=== PATIENT | male | born 1945 | race Caucasian/White ===

== ENCOUNTER 2017-05-03 13:58 | Outpatient (CLI) | payer MEDICARE ==
--- NOTE | 2017-05-03 15:30 | RAD ---
RIGHT HIP 2 VIEWS: HISTORY: Right hip pain. FINDINGS: There is complete loss of joint space, osteophytosis, and subchondral sclerosis. Chronic-appearing d estructive changes are present on each side of the joint space with flattening of the femoral head. No displaced fractures are apparent. There is calcification of the arterial structures. IMPRESSION: 1. Severe osteoarthritis right hip. 2. Atherosclerosis. POS: [facility]
== END 2017-05-03 13:59 | disposition home or self-care (01) ==
LOC: MADRAD 13:58
PROVIDERS: ATTEND Orthopaedic Surgery
DX: M25.551 Pain in right hip (principal); M16.11 Unilateral primary osteoarthritis, right hip; I70.90 Unspecified atherosclerosis

== ENCOUNTER 2017-07-01 16:41 | Inpatient (IN) | payer MEDICARE ==
[2017-07-01 16:52] VITALS: BMI 25.4
[2017-07-01] MEDS ORDERED: Zolpidem Tartrate 5 MG TAB PO PRN (20:04)
[2017-07-01] MEDS: HYDROcodone/Acetaminophen 10/325 mg Tablet PO PRN (21:12)
[2017-07-02] MEDS: Polyethylene Glycol 3350 17 GM Packet PO SCH (08:28)
[2017-07-02] MEDS: Allopurinol 100 MG TAB PO SCH (08:29)
[2017-07-02] MEDS: Citalopram 20 MG TAB PO SCH (08:29)
[2017-07-02] MEDS: Rivaroxaban 10 MG TAB PO SCH (08:29)
[2017-07-02] MEDS: HYDROcodone/Acetaminophen 10/325 mg Tablet PO PRN ×3 (08:33→21:54)
[2017-07-02] MEDS ORDERED: Famotidine 20 MG TAB PO PRN (09:00)
[2017-07-02] MEDS ORDERED: METHOCARBAMOL 500 MG PO PRN (09:00)
[2017-07-02] MEDS ORDERED: Cyclobenzaprine 10 MG TAB PO PRN (11:35)
[2017-07-02] MEDS ORDERED: Senokot S 8.6-50 MG TAB PO SCH (13:15)
--- NOTE | 2017-07-02 13:54 | HP ---
ATTENDING PHYSICIAN: Dr. Nelly Prajapati ORTHOPEDIC PHYSICIAN: Dr. Miguelito Ivey PRIMARY CARE PHYSICIAN: Dr. Lolis Orr REASON FOR ADMISSION: Skilled rehab status post surgery. HISTORY OF PRESENT ILLNESS AND HOSPITAL COURSE: Mr. Goddard is a 72-year-old male with significant history of chronic right hip pain, he also has a history of transient ischemic attack, chronic atrial fibrillation on Xarelto, hypertension, cardiomyopathy, gout, anxiety and chronic insomnia. The patient has been seeing and followed by Dr. Ivey for his right hip pain and was diagnosed osteoarthritis associated with right superior avascular necrosis for which he underwent right total hip arthroplasty on 06/26/2017 at [facility] in [place]. The patient's postop course was unremarkable per report. He was transferred subsequently to [facility] on the night of 07/01/2017 for skilled rehab prior to going back to the home environment. 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 The patient reports issues on pain which is controlled with hydrocodone associated with constipation. He was started on MiraLax last night and the patient reports that he only had a small hard piece of stool this morning. The patient was previously on both tramadol and hydrocodone, but significant other reported today that store operations specialist discontinued the [place] and received a prescription for tramadol prior to hospital discharge. It was mentioned and discussed with the patient's significant other the drug reaction of tramadol to Citalopram given an increased potential risk for seizures that pain management was discussed and after reviewing the side effects or drug interactions of the 2 medications the patient is wanting to continue the [place] instead of tramadol. He also agrees to start on stool softener on a p.r.n. basis, thus continue MiraLax and to start on high fiber supplements that he brought from home. PAST MEDICAL HISTORY: 1. Hypertension. 2. Chronic atrial fibrillation followed by Dr. Zapata for cardio care. Currently on Xarelto. 3. Transient ischemic attack. 4. Cardiomyopathy 5. Gout. 6. Anxiety. 7. Chronic insomnia. 8. Chronic kidney disease. 9. Chronic gastroesophageal reflux disease. PAST SURGICAL HISTORY: The right total hip arthroplasty on 06/26/[address] Brazeal secondary to right hip avascular necrosis/osteoarthritis. MEDICATIONS: 1. Citalopram 20 mg p.o. daily. 2. Allopurinol 30 mg p.o. daily. 3. Hydrocodone 10/325 mg p.o. q.6 hours p.r.n. 4. Diltiazem/hydrochlorothiazide 480 mg p.o. daily. 5. Methocarbamol 500 mg p.o. daily p.r.n. 6. Ranitidine 150 mg p.o. daily. 7. Quetiapine 50 mg q.p.m. 8. Xarelto 20 mg p.o. daily. 9. Polyethylene glycol 17 grams p.o. daily. 10. Ambien 5 mg p.o. at bedtime p.r.n. DIET: Nondrinker, nonsmoker. The patient is currently. Lives in with a significant other.: REVIEW OF SYSTEMS: GENERAL: Denies fever, chills, fatigue. Reports general weakness, no loss of appetite. HEENT: No acute visual changes or hearing changes, no cold symptoms. RESPIRATORY: No cough, sputum production, pain with breathing, wheezing. CARDIOVASCULAR: Intermittent palpitations. No dyspnea on exertion, paroxysmal nocturnal dyspnea or active chest pain. RESPIRATORY: No shortness of breath, pain with breathing, sputum production, bloody sputum. GI: No nausea, vomiting, abdominal pain, rectal bleeding, melena, hematochezia , black or tarry stools. Positive for constipation. GENITOURINARY: No dysuria, hematuria, frequency, urgency or incontinence and gross hematuria. MUSCULOSKELETAL: Reports chronic joint pain and stiffness per HPI. NEURO: No focal numbness, focal weakness. No tremors, tics or seizure activity. PSYCH: Reports anxiety, chronic insomnia. No hallucinations, no depressive symptoms. No suicidal thoughts or ideations or plans. SKIN: No significant rashes or lesions aside from the postoperative site. LABORATORY AND X-RAY FINDINGS: Laboratory and x-ray findings from the hospital ; radiographs showed femoral head collapse with severe degenerative changes likely avascular necrosis with severe osteoarthritis. PHYSICAL EXAMINATION: VITAL SIGNS: Blood pressure 118/82, temperature 98.2, pulse 71-104 irregular, respiration rate 18, O2 sats 95% on room air, weight 158 pounds, height 5 feet 6 inches. GENERAL: The patient is awake, alert, oriented x3, not in distress. No signs of agony. Resting comfortably in bed, significant other at bedside. HEENT: Normocephalic, atraumatic. PERRLA intact, EOM. Anicteric sclera. Oral mucosa is moist. NECK: Supple. No LAD, no JVD, no bruit. CHEST: Normal excursion, clear to auscultation bilaterally. CARDIAC: Rate controlled, irregular. Normal S1 and S2. No murmurs. ABDOMEN: Flat, soft, normoactive bowel sounds, nondistended, nontender, no rebound, no guarding. Negative CVA tenderness bilaterally. EXTREMITIES: Mild swelling of the right lower extremity. No erythema. Negative Homans' signs. Wears compression stockings bilaterally. SKIN: Postoperative site on the right hip is intact, dry and clean looking, no signs of infection, no surrounding erythema, covered with clean, dry dressing. NEUROLOGIC: Nonfocal. DTRs 2+. Gait unsteady. PSYCHIATRIC: Appears calm with appropriate demeanor and affect. LATEST LABS: On 07/01/2017; WBC 5.2, hemoglobin 10.6, hematocrit 31.9, platelets 203. Baseline CBC on 06/27/2017, hemoglobin 10.7, hematocrit 32.4. PT/INR on 06/26/2017; PT of 14.2, INR 1.1, APTT 31.3. Negative UA on 2017. ASSESSMENT AND PLAN: 1. Physical deconditioning. 2. Status post right total hip arthroplasty for right hip avascular necrosis and osteoarthritis. 3. Hypertension. 4. Atrial fibrillation on long-term anticoagulation with Xarelto. 5. Anxiety. 6. Chronic insomnia. 7. Hypertension. 8. Gout. 9. Unsteady gait. 10. General weakness. CODE STATUS: Full code. The patient is admitted to [facility] for skilled rehab. PT, OT evaluation and treat. We will continue current medications as modified per list. We will add stool softener and will continue MiraLax for now. Fleet enema p.r.n. DIET: Low salt, low fat. ACTIVITY: Ad jossie. Further recommendations depending on the hospital course. Estimated length of stay 2-3 weeks. DISPOSITION: Home with significant other as the primary booking officer. The patient is requesting for home health post-discharge. ISABELLE
[2017-07-02] MEDS: Famotidine 20 MG TAB PO PRN (18:49)
[2017-07-02] MEDS: Senokot S 8.6-50 MG TAB PO SCH (20:35)
[2017-07-02] MEDS: Zolpidem Tartrate 5 MG TAB PO PRN (20:43)
[2017-07-03] MEDS: HYDROcodone/Acetaminophen 10/325 mg Tablet PO PRN ×4 (04:33→21:12)
[2017-07-03] MEDS: Senokot S 8.6-50 MG TAB PO SCH ×2 (08:10→21:13)
[2017-07-03] MEDS: Citalopram 20 MG TAB PO SCH (08:11)
[2017-07-03] MEDS: Allopurinol 100 MG TAB PO SCH (08:11)
[2017-07-03] MEDS: Rivaroxaban 10 MG TAB PO SCH (08:11)
[2017-07-03] MEDS: Polyethylene Glycol 3350 17 GM Packet PO SCH (08:12)
[2017-07-03] MEDS: Zolpidem Tartrate 5 MG TAB PO PRN (21:12)
[2017-07-04 05:39] LABS: Hemoglobin 10.1 g/dL (14.0-18.0); Platelet Count 249 thou/uL (130-400)
[2017-07-04] MEDS: HYDROcodone/Acetaminophen 10/325 mg Tablet PO PRN ×3 (07:36→19:42)
[2017-07-04] MEDS: Allopurinol 100 MG TAB PO SCH (08:41)
[2017-07-04] MEDS: Rivaroxaban 10 MG TAB PO SCH (08:42)
[2017-07-04] MEDS: Citalopram 20 MG TAB PO SCH (08:42)
[2017-07-04] MEDS: Senokot S 8.6-50 MG TAB PO SCH ×2 (08:42→20:08)
[2017-07-04] MEDS: Polyethylene Glycol 3350 17 GM Packet PO SCH (08:42)
[2017-07-04] MEDS ORDERED: Melatonin 3 MG TAB PO PRN ×2 (12:38→12:39)
[2017-07-04] MEDS ORDERED: Citalopram 20 MG TAB PO SCH (13:00)
[2017-07-04] MEDS: Famotidine 20 MG TAB PO PRN (14:58)
[2017-07-05] MEDS: HYDROcodone/Acetaminophen 10/325 mg Tablet PO PRN ×2 (06:52→13:19)
[2017-07-05] MEDS ORDERED: Citalopram 20 MG TAB PO SCH ×3 (09:00→21:00)
[2017-07-05] MEDS: Allopurinol 100 MG TAB PO SCH (09:23)
[2017-07-05] MEDS: Senokot S 8.6-50 MG TAB PO SCH ×2 (09:23→20:54)
[2017-07-05] MEDS: Rivaroxaban 10 MG TAB PO SCH (09:23)
[2017-07-05] MEDS: Polyethylene Glycol 3350 17 GM Packet PO SCH (09:24)
[2017-07-05] MEDS ORDERED: Melatonin 3 MG TAB PO PRN ×2 (14:00)
[2017-07-05] MEDS ORDERED: Baclofen 10 MG TAB PO PRN (14:32)
[2017-07-05] MEDS ORDERED: traMADol HCl 50 MG TAB PO PRN (14:34)
[2017-07-05] MEDS ORDERED: HYDROcodone/Acetaminophen 10/325 mg Tablet PO PRN ×2 (14:35)
[2017-07-05] MEDS: traMADol HCl 50 MG TAB PO PRN (21:08)
[2017-07-06 04:28] LABS: POC Occult Blood Neg QC Acceptable (Acceptable); POC Occult Blood Pos QC Acceptable (Acceptable)
[2017-07-06 04:38] LABS: CKMB 1.4 ng/mL (0-6.6); Troponin I 0.027 ng/mL (< 0.028)
[2017-07-06 04:40] LABS: ALT (SGPT) 16 U/L (8-55); AST (SGOT) 20 U/L (5-34); Albumin 2.5 g/dL (3.4-4.8); Alkaline Phosphatase 46 U/L (40-150); Anion Gap 18 mmol/L (10-20); BUN (Urea Nitrogen) 86 mg/dL (8.4-25.7); Bilirubin, Total 0.7 mg/dL (0.2-1.2); Calc. Creatinine Clearance 60 mL/min (70-130); Carbon Dioxide 22 mmol/L (23-31); Chloride 104 mmol/L (98-107); Estimated GFR-MDRD 64; Globulin 1.3 g/dL (2.4-3.5); Glucose 134 mg/dL (83-110); Potassium 3.7 mmol/L (3.5-5.1); Protein, Total 3.8 g/dL (5.8-8.1); Sodium 140 mmol/L (136-145)
[2017-07-06] MEDS: traMADol HCl 50 MG TAB PO PRN ×2 (05:01→09:28)
[2017-07-06] MEDS: Famotidine 20 MG TAB PO PRN (05:01)
[2017-07-06] MEDS ORDERED: Sodium Chloride 0.9% 500 ML BAG ONE (05:14)
[2017-07-06] MEDS ORDERED: Sodium Chloride 0.9% 1,000 ML BAG ONE (05:14)
[2017-07-06] MEDS ORDERED: Sodium Chloride 0.9% 1,000 ML IV PRN (05:14)
[2017-07-06] MEDS ORDERED: Sodium Chloride 0.9% 500 ML IV SCH (05:15)
[2017-07-06 05:39] LABS: Hemoglobin 5.7 g/dL (14.0-18.0); Mean Corpuscular Hemoglobin 34.1 pg (27.0-31.0); Mean Corpuscular Volume 97.1 fL (80.0-94.0); Red Blood Cell (RBC) Count 1.68 mill/uL (4.70-6.10); White Blood Cell (WBC) Count 9.2 thou/uL (4.8-10.8)
[2017-07-06 05:40] LABS: Anisocytosis SLIGHT = 6-15 cells (100X) (0-5/hpf); Elliptocytes MODERATE= 6-15 cells (100X) (0-1/hpf); Hypochromia MARKED = >30 cells (100X) (0-5/hpf); Lymphocytes 4 % (21-51); Mean Corpuscular HGB CONC 35.2 g/dL (32.0-36.0); Mean Platelet Volume 5.3 fL (7.4-10.4); PLT Morphology Comment Appears Adequate; Platelet Count 248 thou/uL (130-400); Poikilocytosis SLIGHT = 6-15 cells (100X) (0-5/hpf); RBC Distribution Width 13.6 % (11.5-14.5)
[2017-07-06 05:41] LABS: MDiff Complete? YES; RBC Morphology Abnormal
[2017-07-06] MEDS ORDERED: Sodium Chloride 0.9% 10 ML ONE (08:27)
[2017-07-06 08:44] VITALS: BP 92/59; TEMP 97.9
[2017-07-06] MEDS: Allopurinol 100 MG TAB PO SCH (10:54)
[2017-07-06] MEDS: Senokot S 8.6-50 MG TAB PO SCH (10:55)
[2017-07-06] MEDS: Polyethylene Glycol 3350 17 GM Packet PO SCH (10:55)
[2017-07-06] MEDS ORDERED: Mag-Al Plus 1200 MG/1200 MG/120 MG/30 ML UDCUP PO PRN (11:08)
== END 2017-07-06 12:30 | disposition short-term general hospital (02) | DRG 560 ==
LOC: MADMS 16:41
PROVIDERS: ADMIT Family Medicine; ATTEND Family Medicine
PROC: 30233N1 Transfusion of Nonautologous Red Blood Cells into Peripheral Vein, Percutaneous Approach (ICD-10-PCS; principal; 2017-07-06)
DX: Z47.1 Aftercare following joint replacement surgery (principal); I42.9 Cardiomyopathy, unspecified; I95.9 Hypotension, unspecified; K92.0 Hematemesis; I48.2 Chronic atrial fibrillation; D64.9 Anemia, unspecified; K92.1 Melena; Z96.641 Presence of right artificial hip joint; Z86.73 Personal history of transient ischemic attack (TIA), and cerebral infarction without residual deficits; Z79.01 Long term (current) use of anticoagulants; I10 Essential (primary) hypertension; M10.9 Gout, unspecified; F41.9 Anxiety disorder, unspecified; F51.04 Psychophysiologic insomnia; K59.03 Drug induced constipation; T40.2X5A Adverse effect of other opioids, initial encounter; K21.9 Gastro-esophageal reflux disease without esophagitis; R26.81 Unsteadiness on feet; R53.1 Weakness; R09.02 Hypoxemia
CPT/HCPCS: 36415; 36416; 36430; 80053; 82270; 82553; 82565; 83880; 84484; 85007; 85014; 85018; 85027; 85049; 86850; 86900; 86901; A4216; G8978-GP-CL; G8979-GP-CI; J7050; P9016

== ENCOUNTER 2017-07-11 18:00 | Inpatient (IN) | payer MEDICARE ==
[2017-07-11] MEDS ORDERED: Prevnar 13-Val Conj/PF 0.5 ML SYRINGE IM ONE (21:00)
[2017-07-11] MEDS: HYDROcodone/Acetaminophen 10/325 mg Tablet PO PRN (21:30)
[2017-07-11] MEDS ORDERED: Acetaminophen 325 MG TAB PO PRN (22:25)
[2017-07-11] MEDS: Acetaminophen 325 MG TAB PO PRN (23:18)
--- NOTE | 2017-07-12 01:09 | HP ---
DATE OF ADMISSION: 07/11/2017 ATTENDING: Nelly Prajapati MD REASON FOR ADMISSION: Readmitted to [facility] for skilled rehabilitation. HISTORY OF PRESENT ILLNESS AND HOSPITAL COURSE: Mr. Cooper is a very pleasant 72-year-old male, who was initially admitted at [facility] on 07/01/2017 after he underwent right total hip arthroplasty on 06/26/[address] [facility] in [place]. The patient had a history of chronic right hip pain and was diagnosed with osteoarthritis associated with the right superior avascular necrosis. Surgery was done by Dr. Ivey. He has has an uncomplicated post operative course. His baseline Hemoglobin at that time postoperatively was10. On 07/06/2017, the patient was noted to have an acute onset of blackish tarry stools. This was associated with severe general weakness, hypotension and tachyarrythmia. His Hemoglobin at that time was down to 5.7, thus he was started on blood transfusion. His vital signs had stabilized and the patient was observed cosely. He was also started on Protonix oral at that time due to patient has started having some epigastric discomfort. While on his second bag of blood transfusion, the patient developed an acute onset of hematemesis thus patient was transferred to [facility] immediately. On further examination in the hospital, the patient was found to have a large gastric ulcer on his first EGD on 07/06/[address] Dangelo. He was treated with Protonix drip and a followup endoscopy was done on 07/07/2017 to stratify risk for intervention. Protonix drip was then changed to Protonix IV q.12 hours p.r.n. During this hospitalization, the patient was also noted to have hemorrhagic shock and acute hypoxic respiratory failure requiring ICU admission. He completed his blood transfusions. He was taken cared of by Dr. Mendenhall and was found to have community-acquired pneumonia with E. coli growth by sputum culture. Patient was started on antibiotic. Patient stabilized and his Hemoglobin and Hematocrit went up to 9.3 and 27 respectively on 07/10/2017. He was also noted to have hypocalcemia at that time, with serum calcium down to 6.9. Lab prior to discharge, showed stable hemoglobin at 9.1 and 27 as of today. His serum calcium normalized up to 8.1. Patient has history of chronic atrial fibrillation and has been on Xarelto as treated by his cash grain farmer, Dr. Zapata. During this acute GI bleeding episode, there was a significant atrial fibrillation noted with RVR. Xarelto was discontinued. Cardio was consulted during this admission and it was deemed that the patient may benefit from further anticoagulation with Eliquis, but not until at least 1-2 weeks. He was also started on Diltiazem CD 360 mg p.o. daily. There was a note from cardio that they are considering Watchman procedure for receiving checker and given his CHADS-VASc score of 4 due to age, hypertension, and history of TIA. He is recommended to follow up in cardio's office in about 4-6 weeks to discuss this further as per Dr. Salmon. Prior to transfer ,patient was was rate controlled with current Calcium channel dequan. He was also started on Digoxin. After patient was stabilized, patient was still noted to be generally weak. He was deemed to benefit from skilled rahab prior to going back to home environment. He was subsequently transferred to [facility] on 07/11/2017 to continue rehabilitation. When seen, patient reports that he still feels generally weak, but he looks a lot better. He reports has been having pain on the right hip and low back and upper back today as he has been in his chair since this morning. He denies abdominal pain, recurrence of nausea or vomiting. No more hematemesis. Reports his stools are brownish now and not blackish anymore. He reports that he is still coughing some. Cough is nonproductive. Denies bloody sputum. States he is eating much better as his appetite came back. No other new issues reported. PAST MEDICAL HISTORY: Hypertension, chronic atrial fibrillation followed by Dr. Zapata for cardio care, previously on Xarelto; transient ischemic attack; cardiomyopathy, gout, anxiety, chronic insomnia, chronic kidney disease, chronic gastroesophageal reflux disease, large gastric ulcer on 07/06/2017. Status post endoscopy 07/06/2017 and 07/07/[address] Dangelo. PAST SURGICAL HISTORY: Right total hip arthroplasty on 06/26/[address] Ivey secondary to right hip avascular necrosis/osteoarthritis. MEDICATIONS: 1. Citalopram 20 mg p.o. daily. 2. Allopurinol 300 mg p.o. daily. 3. Hydrocodone 10/325 p.o. 1 to 2 tablets q.6 hours p.r.n. 4. Diltiazem CD 360 mg p.o. daily. 5. Methocarbamol 500 mg p.o. daily p.r.n. 6. Protonix 40 mg p.o. b.i.d. 7. Quetiapine 50 mg p.o. q.p.m. 8. Digoxin 0.125 mg p.o. daily. 9. Levaquin 750 mg p.o. q.6 a.m. 10. Tramadol 50mg 1-2 q.6 hours p.r.n. SOCIAL HISTORY: Nondrinker. Nonsmoker. Patient is . Currently lives with significant other who serves as a primary oyster worker. REVIEW OF SYSTEMS: General: Denies fever or chills. Reports fatigue, general weakness and loss of appetite. HEENT: No acute visual changes or hearing changes. Respiratory: Reports some cough, none dry. No sputum production. Denies pain with breathing. Denies wheezing, or bloody sputum. Cardiovascular : Reports intermittent palpitations. No active chest pain, no dyspnea on exertion, paroxysmal nocturnal dyspnea. Gastrointestinal: No nausea, vomiting , abdominal pain, or diarrhea. Reports history of rectal bleeding, melena, and hematochezia and constipation. Genitourinary: No dysuria, hematuria, frequency , urgency or incontinence. Musculoskeletal: Reports chronic joint pain and stiffness. Neuro: No focal numbness, focal weakness. No tremors, no seizure activity. Reports facial tics a chronic finding. Psychiatric: Reports chronic anxiety, chronic insomnia. No hallucinations, depressive symptoms, suicidal thoughts or ideations. Skin: No significant rashes or lesions aside from the postoperative site. LABORATORY DATA: Most recent lab on 07/11/2017, hemoglobin 9.1, hematocrit 27, calcium 8.1 on 07/10/2017, and albumin 2.1 on 07/07/2017. PHYSICAL EXAMINATION: VITAL SIGNS: Blood pressure 144/65, temperature 97.7, pulse 73, respirations 22 , O2 sats 95% on room air, weight 163 pounds and 64 ounces, height 5 feet 6 inches. GENERAL: The patient is awake, alert, oriented x3, not in distress, comfortable on exam, significant other at bedside. HEENT: Normocephalic, atraumatic. PERRL. Intact EOM. Nonicteric sclera. No nystagmus. Clear naris. Oral mucosa is moist. No oral lesions. NECK: Supple. No LAD, no JVD, no bruit. CHEST: Normal excursion, clear to auscultation bilaterally. CARDIAC: Rate controlled. Normal S1 and S2. No murmurs. ABDOMEN: Flat, normoactive bowel sounds, nondistended, nontender. No rebound, no guarding. Negative epigastric tenderness. Negative Diego's. Negative CVA tenderness bilaterally. EXTREMITIES: No edema, no cyanosis. SKIN: Some bruising noted on both upper extremities. PSYCH: calm, appropriate, cooperative. ASSESSMENT AND PLAN: 1. Deconditioning/General weakness. 2. Large gastric ulcer, with massive gastrointestinal bleeding. Status post endoscopy on 07/06/2017 and 07/07/[address] Dangelo. 3. Community-acquired pneumonia with Escherichia coli by sputum culture. 4. Chronic atrial fibrillation with rapid ventricular response. Now rate controlled. We will start on Eliquis by 07/18/2017. 5. Severe anemia, from acute blood loss, requiring blood transfusion. Complicated with hemorrhagic shock- resolved. 6. Status post right hemiarthroplasty for avascular necrosis. 7. Hypoalbuminemia. 8. Unsteady gait. 9. Anxiety. 10. Chronic insomnia. 11. Acute hypoxic respiratory failure, resolved. The patient will be admitted to [facility] for skilled rehabilitation. Refer to PT, OT. Referred to dietitian for protein supplement. Continue current medications as modified per list. Complete oral antibiotic as prescribed. Eliquis just 5 mg b.i.d. to start on 07/18/17 per Cardio and GI recommendations. Gastrointestinal prophylaxis with Protonix b.i.d. Deep venous thrombosis prophylaxis with compression stockings. Followup with Dr. Dangelo in 1 month. Possible EGD as outpatient in 8 weeks to document healing as per GI recommendation. Followup with Cardiology in 4-6 weeks. Will monitor labs routinely. Further recommendations depending on the hospital course, routine labs ordered. Estimated length of stay : 2-3 weeks. Code status: Patient reports FULL CODE. MTDD
[2017-07-12 05:06] LABS: #Eosinphils 0.1 thou/uL (0.0-0.7); #Lymphocytes 1.2 thou/uL (1.20-3.40); #Monocytes 0.6 thou/uL (0.11-0.59); #Neutrophils 6.7 thou/uL (1.40-6.50); %Basophils 0.4 % (0.0-1.0); %Eosinophils 0.9 % (0.0-10.0); %Lymphocytes 13.9 % (21.0-51.0); %Monocytes 6.6 % (0.0-10.0); %Neutrophils 78.2 % (42.0-75.0); Hemoglobin 8.3 g/dL (14.0-18.0); Mean Corpuscular HGB CONC 33.6 g/dL (32.0-36.0); Mean Corpuscular Volume 95.2 fl (80.0-94.0); Mean Platelet Volume 6.1 fL (7.4-10.4); Platelet Count 241 thou/uL (130-400); RBC Distribution Width 15.5 % (11.5-14.5); Red Blood Cell (RBC) Count 2.59 mill/uL (4.70-6.10); White Blood Cell (WBC) Count 8.6 thou/uL (4.8-10.8)
[2017-07-12 05:22] LABS: Digoxin 1.85 ng/mL (0.8-2.0)
[2017-07-12] MEDS: Citalopram 20 MG TAB PO SCH (08:22)
[2017-07-12] MEDS: Digoxin 0.125 MG TAB PO SCH (08:22)
[2017-07-12] MEDS: Allopurinol 100 MG TAB PO SCH (08:29)
[2017-07-12] MEDS ORDERED: APIXABAN 5 MG PO SCH (09:00)
[2017-07-12] MEDS ORDERED: METHOCARBAMOL 500 MG PO SCH (09:00)
[2017-07-12] MEDS: Acetaminophen 325 MG TAB PO PRN ×2 (09:56→20:22)
[2017-07-12 11:56] LABS: Iron Less than 8 ug/dL (65-175); Iron Binding Capacity, Total 165 mcg/dL (261-462)
[2017-07-12] MEDS ORDERED: Methocarbamol 500 MG TAB PO SCH (14:00)
[2017-07-12] MEDS: HYDROcodone/Acetaminophen 10/325 mg Tablet PO PRN (21:27)
[2017-07-13] MEDS: HYDROcodone/Acetaminophen 10/325 mg Tablet PO PRN ×2 (07:36→20:06)
[2017-07-13] MEDS: Ferrous Sulfate 325 MG TAB PO SCH ×2 (07:37→17:28)
[2017-07-13 07:50] LABS: Hemoglobin 8.4 g/dL (14.0-18.0)
[2017-07-13] MEDS: Digoxin 0.125 MG TAB PO SCH (09:28)
[2017-07-13] MEDS: Methocarbamol 500 MG TAB PO SCH (09:28)
[2017-07-13] MEDS: Citalopram 20 MG TAB PO SCH (09:28)
[2017-07-13] MEDS: Allopurinol 100 MG TAB PO SCH (09:28)
[2017-07-13] MEDS: Acetaminophen 325 MG TAB PO PRN (13:24)
[2017-07-14] MEDS: HYDROcodone/Acetaminophen 10/325 mg Tablet PO PRN ×2 (00:41→08:43)
[2017-07-14] MEDS: Allopurinol 100 MG TAB PO SCH (08:41)
[2017-07-14] MEDS: Ferrous Sulfate 325 MG TAB PO SCH ×2 (08:41→16:49)
[2017-07-14] MEDS: Digoxin 0.125 MG TAB PO SCH (08:41)
[2017-07-14] MEDS: Citalopram 20 MG TAB PO SCH (08:43)
[2017-07-14] MEDS: Methocarbamol 500 MG TAB PO SCH (08:43)
[2017-07-14] MEDS: Docusate 100 MG CAP PO PRN (14:17)
[2017-07-14] MEDS: Polyethylene Glycol 3350 17 GM Packet PO SCH (14:18)
[2017-07-14] MEDS: Acetaminophen 325 MG TAB PO PRN ×2 (14:19→23:12)
[2017-07-14] MEDS: traMADol HCl 50 MG TAB PO PRN (20:18)
[2017-07-15] MEDS: Acetaminophen 325 MG TAB PO PRN ×2 (05:38→16:11)
[2017-07-15] MEDS: Polyethylene Glycol 3350 17 GM Packet PO SCH (08:11)
[2017-07-15] MEDS: Allopurinol 100 MG TAB PO SCH (08:12)
[2017-07-15] MEDS: HYDROcodone/Acetaminophen 10/325 mg Tablet PO PRN (08:12)
[2017-07-15] MEDS: Methocarbamol 500 MG TAB PO SCH (08:12)
[2017-07-15] MEDS: Citalopram 20 MG TAB PO SCH (08:13)
[2017-07-15] MEDS: Docusate 100 MG CAP PO PRN ×2 (08:13→16:11)
[2017-07-15] MEDS: Digoxin 0.125 MG TAB PO SCH (08:13)
[2017-07-15] MEDS: Ferrous Sulfate 325 MG TAB PO SCH ×2 (08:14→16:56)
[2017-07-15] MEDS: traMADol HCl 50 MG TAB PO PRN (19:59)
[2017-07-16] MEDS: HYDROcodone/Acetaminophen 10/325 mg Tablet PO PRN ×3 (03:02→20:45)
[2017-07-16] MEDS: Methocarbamol 500 MG TAB PO SCH (08:41)
[2017-07-16] MEDS: Allopurinol 100 MG TAB PO SCH (08:41)
[2017-07-16] MEDS: Digoxin 0.125 MG TAB PO SCH (08:41)
[2017-07-16] MEDS: Polyethylene Glycol 3350 17 GM Packet PO SCH (08:41)
[2017-07-16] MEDS: Ferrous Sulfate 325 MG TAB PO SCH ×2 (08:42→17:15)
[2017-07-16] MEDS: Citalopram 20 MG TAB PO SCH (08:42)
[2017-07-16] MEDS: Docusate 100 MG CAP PO PRN (08:42)
[2017-07-16] MEDS: Acetaminophen 325 MG TAB PO PRN (17:16)
[2017-07-16] MEDS: traMADol HCl 50 MG TAB PO PRN (17:16)
[2017-07-17 05:55] LABS: Hemoglobin 8.9 g/dL (14.0-18.0); Platelet Count 355 thou/uL (130-400)
[2017-07-17] MEDS: Acetaminophen 325 MG TAB PO PRN ×2 (07:31→20:55)
[2017-07-17] MEDS: Allopurinol 100 MG TAB PO SCH (08:33)
[2017-07-17] MEDS: Digoxin 0.125 MG TAB PO SCH (08:33)
[2017-07-17] MEDS: Citalopram 20 MG TAB PO SCH (08:33)
[2017-07-17] MEDS: Polyethylene Glycol 3350 17 GM Packet PO SCH (08:33)
[2017-07-17] MEDS: Methocarbamol 500 MG TAB PO SCH (08:33)
[2017-07-17] MEDS: Ferrous Sulfate 325 MG TAB PO SCH ×2 (08:33→16:41)
[2017-07-17] MEDS: HYDROcodone/Acetaminophen 10/325 mg Tablet PO PRN ×2 (10:33→16:40)
[2017-07-18] MEDS: HYDROcodone/Acetaminophen 10/325 mg Tablet PO PRN ×3 (07:42→20:39)
[2017-07-18] MEDS: Apixaban 5 MG TAB PO SCH ×2 (08:45→20:34)
[2017-07-18] MEDS: Allopurinol 100 MG TAB PO SCH (08:47)
[2017-07-18] MEDS: Methocarbamol 500 MG TAB PO SCH (08:47)
[2017-07-18] MEDS: Citalopram 20 MG TAB PO SCH (08:48)
[2017-07-18] MEDS: Polyethylene Glycol 3350 17 GM Packet PO SCH (08:48)
[2017-07-18] MEDS: Ferrous Sulfate 325 MG TAB PO SCH ×2 (08:48→17:03)
[2017-07-18] MEDS: Digoxin 0.125 MG TAB PO SCH (08:48)
[2017-07-18] MEDS ORDERED: Non-Formulary Item 1 EACH (Apixaban [Eliquis] 2.5 MG) PO SCH (09:00)
[2017-07-19] MEDS: Polyethylene Glycol 3350 17 GM Packet PO SCH (08:32)
[2017-07-19] MEDS: Allopurinol 100 MG TAB PO SCH (08:33)
[2017-07-19] MEDS: Methocarbamol 500 MG TAB PO SCH (08:34)
[2017-07-19] MEDS: HYDROcodone/Acetaminophen 10/325 mg Tablet PO PRN ×2 (08:34→20:35)
[2017-07-19] MEDS: Ferrous Sulfate 325 MG TAB PO SCH ×2 (08:35→17:02)
[2017-07-19] MEDS: Digoxin 0.125 MG TAB PO SCH (08:35)
[2017-07-19] MEDS: Citalopram 20 MG TAB PO SCH (08:35)
[2017-07-19] MEDS: Apixaban 5 MG TAB PO SCH ×2 (08:35→20:35)
[2017-07-19] MEDS: Acetaminophen 325 MG TAB PO PRN (11:54)
[2017-07-19] MEDS: traMADol HCl 50 MG TAB PO PRN (17:35)
[2017-07-20 05:12] LABS: Hemoglobin 8.7 g/dL (14.0-18.0); Platelet Count 356 thou/uL (130-400)
[2017-07-20] MEDS: HYDROcodone/Acetaminophen 10/325 mg Tablet PO PRN ×2 (08:13→22:35)
[2017-07-20] MEDS: Allopurinol 100 MG TAB PO SCH (08:14)
[2017-07-20] MEDS: Polyethylene Glycol 3350 17 GM Packet PO SCH (08:14)
[2017-07-20] MEDS: Apixaban 5 MG TAB PO SCH ×2 (08:15→20:36)
[2017-07-20] MEDS: Citalopram 20 MG TAB PO SCH (08:15)
[2017-07-20] MEDS: Methocarbamol 500 MG TAB PO SCH (08:15)
[2017-07-20] MEDS: Ferrous Sulfate 325 MG TAB PO SCH ×2 (08:16→17:39)
[2017-07-20] MEDS: Digoxin 0.125 MG TAB PO SCH (08:16)
[2017-07-20] MEDS: Acetaminophen 325 MG TAB PO PRN (15:34)
[2017-07-21] MEDS: HYDROcodone/Acetaminophen 10/325 mg Tablet PO PRN ×3 (07:44→21:36)
[2017-07-21] MEDS: Methocarbamol 500 MG TAB PO SCH (08:21)
[2017-07-21] MEDS: Citalopram 20 MG TAB PO SCH (08:22)
[2017-07-21] MEDS: Allopurinol 100 MG TAB PO SCH (08:22)
[2017-07-21] MEDS: Polyethylene Glycol 3350 17 GM Packet PO SCH (08:23)
[2017-07-21] MEDS: Apixaban 5 MG TAB PO SCH ×2 (08:23→21:37)
[2017-07-21] MEDS: Digoxin 0.125 MG TAB PO SCH (08:26)
[2017-07-21] MEDS: Ferrous Sulfate 325 MG TAB PO SCH ×2 (08:27→16:15)
[2017-07-22 05:29] LABS: Hemoglobin 9.8 g/dL (14.0-18.0); Platelet Count 379 thou/uL (130-400)
[2017-07-22] MEDS: HYDROcodone/Acetaminophen 10/325 mg Tablet PO PRN ×2 (07:47→20:10)
[2017-07-22] MEDS: Allopurinol 100 MG TAB PO SCH (08:08)
[2017-07-22] MEDS: Methocarbamol 500 MG TAB PO SCH (08:09)
[2017-07-22] MEDS: Apixaban 5 MG TAB PO SCH ×2 (08:09→20:10)
[2017-07-22] MEDS: Digoxin 0.125 MG TAB PO SCH (08:10)
[2017-07-22] MEDS: Citalopram 20 MG TAB PO SCH (08:10)
[2017-07-22] MEDS: Polyethylene Glycol 3350 17 GM Packet PO SCH (08:11)
[2017-07-22] MEDS: Ferrous Sulfate 325 MG TAB PO SCH ×2 (08:11→17:19)
[2017-07-23] MEDS: HYDROcodone/Acetaminophen 10/325 mg Tablet PO PRN ×2 (07:48→20:55)
[2017-07-23] MEDS: Ferrous Sulfate 325 MG TAB PO SCH ×2 (07:50→17:19)
[2017-07-23] MEDS: Polyethylene Glycol 3350 17 GM Packet PO SCH (09:11)
[2017-07-23] MEDS: Allopurinol 100 MG TAB PO SCH (09:11)
[2017-07-23] MEDS: Apixaban 5 MG TAB PO SCH ×2 (09:12→20:55)
[2017-07-23] MEDS: Methocarbamol 500 MG TAB PO SCH (09:12)
[2017-07-23] MEDS: Citalopram 20 MG TAB PO SCH (09:12)
[2017-07-23] MEDS: Digoxin 0.125 MG TAB PO SCH (09:13)
--- NOTE | 2017-07-23 13:20 | RAD ---
TWO VIEWS OF THE CHEST: COMPARISON: 07/06/17. HISTORY: Followup. Respiratory distress. FINDINGS: Two views of the chest shows an enlarged but stable cardiomediastinal silhouette. There appears to b e a moderate right pleural effusion. No left pleural effusion is seen. IMPRESSION: Moderate right pleural effusion. POS: [facility]
[2017-07-23] MEDS: Acetaminophen 325 MG TAB PO PRN (17:19)
[2017-07-23 18:56] VITALS: BMI 25.9
[2017-07-24 05:14] LABS: Hemoglobin 9.2 g/dL (14.0-18.0); Platelet Count 364 thou/uL (130-400)
[2017-07-24 05:26] LABS: Calc. Creatinine Clearance 87 mL/min (70-130); Estimated GFR-MDRD Greater than 90
[2017-07-24] MEDS ORDERED: Ondansetron ODT 4 MG TAB PO PRN (06:38)
[2017-07-24] MEDS: Ferrous Sulfate 325 MG TAB PO SCH ×2 (07:20→17:15)
[2017-07-24] MEDS: HYDROcodone/Acetaminophen 10/325 mg Tablet PO PRN (08:45)
[2017-07-24] MEDS: Polyethylene Glycol 3350 17 GM Packet PO SCH (08:46)
[2017-07-24] MEDS: Allopurinol 100 MG TAB PO SCH (08:47)
[2017-07-24] MEDS: Digoxin 0.125 MG TAB PO SCH (08:49)
[2017-07-24] MEDS: Apixaban 5 MG TAB PO SCH ×2 (08:49→20:15)
[2017-07-24] MEDS: Citalopram 20 MG TAB PO SCH (08:49)
[2017-07-24] MEDS: Acetaminophen 325 MG TAB PO PRN (20:15)
[2017-07-24] MEDS: traZODone HCl 50 MG TAB PO PRN (21:23)
[2017-07-25] MEDS: HYDROcodone/Acetaminophen 10/325 mg Tablet PO PRN ×3 (02:55→22:18)
[2017-07-25] MEDS: Digoxin 0.125 MG TAB PO SCH (08:30)
[2017-07-25] MEDS: Citalopram 20 MG TAB PO SCH (08:30)
[2017-07-25] MEDS: Ferrous Sulfate 325 MG TAB PO SCH ×2 (08:30→17:23)
[2017-07-25] MEDS: Polyethylene Glycol 3350 17 GM Packet PO SCH (08:31)
[2017-07-25] MEDS: Furosemide 20 MG TAB PO SCH (08:31)
[2017-07-25] MEDS: Apixaban 5 MG TAB PO SCH ×2 (08:31→21:10)
[2017-07-25] MEDS: Allopurinol 100 MG TAB PO SCH (08:31)
[2017-07-25] MEDS: Acetaminophen 325 MG TAB PO PRN (12:59)
[2017-07-25] MEDS: traZODone HCl 50 MG TAB PO PRN (22:24)
[2017-07-26 05:59] LABS: Platelet Count 404 thou/uL (130-400)
[2017-07-26 07:00] VITALS: BP 153/83; TEMP 97.7
[2017-07-26] MEDS: Apixaban 5 MG TAB PO SCH (08:29)
[2017-07-26] MEDS: Furosemide 20 MG TAB PO SCH (08:30)
[2017-07-26] MEDS: Citalopram 20 MG TAB PO SCH (08:30)
[2017-07-26] MEDS: Allopurinol 100 MG TAB PO SCH (08:30)
[2017-07-26] MEDS: Ferrous Sulfate 325 MG TAB PO SCH ×2 (08:30→16:19)
[2017-07-26] MEDS: HYDROcodone/Acetaminophen 10/325 mg Tablet PO PRN ×2 (08:32→15:48)
[2017-07-26] MEDS: Digoxin 0.125 MG TAB PO SCH (08:32)
[2017-07-26] MEDS: Polyethylene Glycol 3350 17 GM Packet PO SCH (08:32)
--- NOTE | 2017-07-31 19:51 | DIS ---
DATE OF ADMISSION: 07/11/2017 DATE OF DISCHARGE: 07/26/2017 ATTENDING PHYSICIAN: Nelly Prajapati M.D. PRIMARY CARE PHYSICIAN: Dr. Lolis Orr. ORTHOPEDIST: Miguelito Ivey M.D. INBOUND SALES ADVISOR: Dashawn Dangelo M.D. MARKETING DEVELOPMENT REPRESENTATIVE: Harpreet Mendenhall MD TACTICAL AIR DEFENSE CONTROLLER: Kobe Zapata MD FINANCIAL SOLUTIONS ADVISOR: Sigifredo Salmon M.D. REASON FOR ADMISSION: Skilled rehabilitation to [facility]. DISPOSITION: Home with significant other as a primary utilization engineer. CONDITION ON DISCHARGE: Stable. DIAGNOSES: 1. Deconditioning/general weakness. 2. Status post right hemiarthroplasty for avascular necrosis of the right hip. 3. Acute large gastric ulcer with massive gastrointestinal bleeding, status post endoscopy on 07/06/2017 and 07/07/[address] Dangelo, benson. 4. Chronic atrial fibrillation with acute rapid ventricular response, rate controlled. Acute on chronic secondary to acute blood loss, requiring transfusion. Complicated with hemorrhagic shock, resolved. Possible drug induced from Xarelto toxicity. 5. Hypoalbuminemia. 6. Unsteady gait. 7. Anxiety. 8. Chronic insomnia. 9. Pleural effusion, right middle lobe, by chest x-ray. 10. Community-acquired pneumonia with E. coli by sputum culture, treated. 11. History of acute hypoxic respiratory failure, resolved. 12. Iron deficiency anemia HOME MEDICATIONS: Eliquis 2.5 mg p.o. b.i.d., digoxin 0.125 mg daily, diltiazem 360 mg CD p.o. daily, docusate 1 tablet p.o. b.i.d. p.r.n., ferrous sulfate 325 mg p.o. b.i.d., furosemide 20 mg p.o. daily, hydrocodone/APAP 10/ 325 mg p.o. q.4 hours p.r.n., pantoprazole 40 mg p.o. daily, trazodone 50 mg p.o. at bedtime p.r.n., citalopram 20 mg p.o. daily, digoxin 0.125 mg p.o. daily , pantoprazole 40 mg p.o. daily. DISCHARGE INSTRUCTIONS: 1. Discharged with significant other. 2. Diet: Low salt, low fat. 3. Follow up with PCP or Dr. Prajapati in 1 week, sooner with concerns. Follow up with GI in 4 weeks or as previously scheduled. Follow up with Cardiology in 1-2 weeks. Routine repeat CBC and iron as outpatient in 3-4 weeks. 4. Referred to [facility] outpatient therapy per request. HISTORY OF PRESENT ILLNESS AND HOSPITAL COURSE: Mr. Goddard is a very pleasant 72-year-old male who was initially admitted to [facility] on 07/01/2017, after he underwent right total hip arthroplasty that was performed on 06/26/2017 at [facility] in [place] by Dr. Ivey. The patient had a history of chronic right hip pain and was diagnosed with osteoarthritis, associated with right superior avascular necrosis. He had an uncomplicated postoperative course and his baseline hemoglobin postoperatively was 10 prior to transfer to [facility]. The patient had an acute episode of GI bleed while on rehabilitation at [facility]. His hemoglobin went down from 10 to 5.7, thus requiring blood transfusion. While on the process of receiving his second pack of blood transfusion, the patient started throwing up from the imelda blood. This was associated with hypotension and tachyarrythmia. Patient was then transferred immediately back to [facility] in [place]. On further exam in the hospital, the patient was found to have a large gastric ulcer on his first EGD in 07/06/[address] Dangelo. He was treated initially with Protonix drip that eventually was continued on p.o. q.12 hours. His hospital course was complicated with hemorrhagic shock and acute hypoxic respiratory failure, requiring ICU admission. After completion of blood transfusions, the patient's hemoglobin stabilized at 9.1-9.3 range. When he was transferred to [facility], his hemoglobin ranges between 8.3- 8.9. His iron level was noticeably low when reevaluated during his rehab course, thus he was started on iron supplement. There was no significant evidence of occult blood during his rehab course.With regards to his chronic atrial fib with RVR, Xarelto was discontinued and Cardiology as well as EPS was consulted. Anticoagulation was changed from Xarelto to Eliquis. Anticoagulation was withheld within a period of 2 weeks before Eliquis was restarted on 07/18/2017. The patient tolerated Eliquis 2.5 mg p.o. b.i.d. without significant medication side effects while in Rehab. He was also started on diltiazem CD 360 mg p.o. daily and Digoxin at that time by the Publicity Writer. There was a note from engineering clerk that they are considering Watchman procedure for long-term and given his CHADS-VASc score of 4 due to age , hypertension, and history of TIA. He is recommended to follow up with cardiology's office in about 4-6 weeks to discuss this further with Dr. Salmon. During his rehabilitation course, the patient has completed his Levaquin for pneumonia that was diagnosed during his ICU stay. He has been tolerating O2 saturation at room air during his rehab course. Repeat chest x-ray post- antibiotic therapy showed significant right middle lobe pleural effusion without evidence of pneumonia. The patient also developed significant volume retention mostly on the leg, thus he was started on Lasix, for which he tolerated well. There was no recurrence sputum production or cough during his rehab course, but respiratory rate baseline ranges from 20-22. During his hospital stay, the patient significant other's reported apparent concern with the use of Seroquel. The patient was went off from Seroquel and was started on Trazodone, for which he tolerated well. He is also on Citalopram 20 mg p.o. daily, thus tramadol was discontinued for pain control due to drug-drug interaction. The patient was comfortable continuing Nesmith on a p.r.n. basis prior to discharge. He will continue Nesmith at home as needed. Overall, the patient's functional status has markedly improved. He has been walking a total of 300 feet prior to discharge using a rolling walker. He remains to be slow in his mariam and with decreased endurance and strength over all, but marked progress was noticed. His overall goal was not completely met prior to discharge. The patient deemed to benefit for further rehabilitation as outpatient. After several discussions with the patient and significant other, the patient was comfortable continuing his therapy with outpatient therapy in [place] over home health at home, thus patient was referred for outpatient therapy per request. LABORATORY: Prior to discharge, on 07/26/2017, hemoglobin 10, hematocrit 29.4, platelet count 404, creatinine 0.84, estimated GFR 90. On 07/12/2017, iron less than, TIBC 165, ferritin 279.23. Digoxin level on 07/12/2017 was 1.85. Vital signs prior to discharge, blood pressure 153/83, temperature 97.7, pulse 87 and irregular, respiration rate 18, O2 sats 94% at room air, weight 162 pounds and 9 ounces. Time spent on this discharge 35 minutes on the patient examination and coordinating care. YAJAIRAD
== END 2017-07-26 16:44 | disposition home or self-care (01) | DRG 947 ==
LOC: MADMS 18:00
PROVIDERS: ADMIT Family Medicine; ATTEND Family Medicine
DX: R53.1 Weakness (principal); J15.5 Pneumonia due to Escherichia coli; J96.01 Acute respiratory failure with hypoxia; J90 Pleural effusion, not elsewhere classified; I42.9 Cardiomyopathy, unspecified; E88.09 Other disorders of plasma-protein metabolism, not elsewhere classified; I48.2 Chronic atrial fibrillation; D62 Acute posthemorrhagic anemia; I10 Essential (primary) hypertension; Z79.01 Long term (current) use of anticoagulants; Z86.73 Personal history of transient ischemic attack (TIA), and cerebral infarction without residual deficits; M10.9 Gout, unspecified; F41.9 Anxiety disorder, unspecified; G47.00 Insomnia, unspecified; K21.9 Gastro-esophageal reflux disease without esophagitis; Z96.641 Presence of right artificial hip joint; K25.9 Gastric ulcer, unspecified as acute or chronic, without hemorrhage or perforation; R26.81 Unsteadiness on feet
CPT/HCPCS: 36415; 71046; 80162; 82565; 82728; 83540; 83550; 85014; 85018; 85025; 85049; G0283-GP; Q0162

== ENCOUNTER 2017-08-09 15:21 | Outpatient (CLI) | payer MEDICARE ==
--- NOTE | 2017-08-09 15:53 | RAD ---
TWO VIEW CHEST: COMPARISON: 07/23/17. INDICATION: CHF. FINDINGS: Cardiac silhouette is mildly enlarged. There is stable size of pulmonary vasculature. No new consol idation or effusion. There is mild vascular calcification. IMPRESSION: 1. Stable chest. 2. Cardiac silhouette remains enlarged. POS: [facility]
[2017-08-09 16:14] LABS: #Basophils 0.1 thou/uL (0.0-0.2); #Eosinphils 0.2 thou/uL (0.0-0.7); #Lymphocytes 1.4 thou/uL (1.20-3.40); #Monocytes 0.5 thou/uL (0.11-0.59); #Neutrophils 4.7 thou/uL (1.40-6.50); %Basophils 1.2 % (0.0-1.0); %Eosinophils 3.5 % (0.0-10.0); %Lymphocytes 19.7 % (21.0-51.0); %Monocytes 7.3 % (0.0-10.0); %Neutrophils 68.4 % (42.0-75.0); Hemoglobin 10.7 g/dL (14.0-18.0); Mean Corpuscular HGB CONC 32.7 g/dL (32.0-36.0); Mean Corpuscular Hemoglobin 29.3 pg (27.0-31.0); Mean Corpuscular Volume 89.6 fl (80.0-94.0); Mean Platelet Volume 5.5 fL (7.4-10.4); Platelet Count 421 thou/uL (130-400); RBC Distribution Width 15.9 % (11.5-14.5); Red Blood Cell (RBC) Count 3.66 mill/uL (4.70-6.10); White Blood Cell (WBC) Count 6.8 thou/uL (4.8-10.8)
[2017-08-09 16:31] LABS: ALT (SGPT) 13 U/L (8-55); AST (SGOT) 21 U/L (5-34); Albumin 3.8 g/dL (3.4-4.8); Alkaline Phosphatase 75 U/L (40-150); Anion Gap 17 mmol/L (10-20); BUN (Urea Nitrogen) 19 mg/dL (8.4-25.7); Calc. Creatinine Clearance 0 mL/min (70-130); Calcium 9.1 mg/dL (7.8-10.44); Carbon Dioxide 26 mmol/L (23-31); Chloride 100 mmol/L (98-107); Estimated GFR-MDRD 55; Globulin 3.2 g/dL (2.4-3.5); Glucose 90 mg/dL (83-110); Potassium 4.3 mmol/L (3.5-5.1); Sodium 139 mmol/L (136-145)
[2017-08-09 16:32] LABS: Digoxin 1.18 ng/mL (0.8-2.0)
[2017-08-09 21:48] LABS: Iron 40 ug/dL (65-175); Iron Binding Capacity, Total 259 mcg/dL (261-462)
== END 2017-08-09 15:22 | disposition home or self-care (01) ==
LOC: MADLABBHPM 15:21
PROVIDERS: ATTEND Family Medicine
DX: I50.9 Heart failure, unspecified (principal); I48.91 Unspecified atrial fibrillation; I51.7 Cardiomegaly
CPT/HCPCS: 36415; 71046; 80053; 80162; 83540; 83550; 85025

== ENCOUNTER 2018-01-19 15:23 | Emergency (ER) | payer MEDICARE | END 2018-01-19 16:00 | disposition left against medical advice (07) | LOC: MADERS 15:23 | DX: Z53.21 Procedure and treatment not carried out due to patient leaving prior to being seen by health care provider (principal) ==

== ENCOUNTER 2018-01-20 13:01 | Emergency (ER) | payer MEDICARE ==
[~2018-01-20 13:01] MED LIST: Sodium Chloride 0.9% 100 ML BAG ONE
[2018-01-20] MEDS ORDERED: SUMAtriptan Succinate 6 MG/0.5 ML VIAL ONE (14:19)
[2018-01-20] MEDS ORDERED: Prochlorperazine 10 MG/2 ML VIAL ONE (14:21)
== END 2018-01-20 15:13 | disposition home or self-care (01) ==
LOC: MADERS 13:01
DX: G43.909 Migraine, unspecified, not intractable, without status migrainosus (principal); I10 Essential (primary) hypertension; Z86.73 Personal history of transient ischemic attack (TIA), and cerebral infarction without residual deficits; M10.9 Gout, unspecified; K21.9 Gastro-esophageal reflux disease without esophagitis; F41.9 Anxiety disorder, unspecified; Z79.899 Other long term (current) drug therapy
CPT/HCPCS: 96365; 96372; J0780; J3030; J7050

== ENCOUNTER 2018-06-13 13:52 | Outpatient (CLI) | payer MEDICARE ==
--- NOTE | 2018-06-13 14:43 | RAD ---
RIGHT HIP TWO VIEWS: History: Patient status post total hip replacement. FINDINGS: A right hip prosthesis is in place. It is difficult on these projects to assess the position of the a cetabular cup. There is marked vascular calcifications present. There are no fractures or loosening n oted. IMPRESSION: Right hip prosthesis as discussed above. POS: [facility]
== END 2018-06-13 13:53 | disposition home or self-care (01) ==
LOC: MADRAD 13:52
PROVIDERS: ATTEND Orthopaedic Surgery
DX: Z47.1 Aftercare following joint replacement surgery (principal); Z96.641 Presence of right artificial hip joint

== ENCOUNTER 2018-12-12 12:45 | Outpatient (CLI) | payer MEDICARE ==
--- NOTE | 2018-12-12 13:36 | RAD ---
RIGHT HIP 2 VIEWS: INDICATION: Right hip replacement. COMPARISON: Prior exam dated 06/13/2018. FINDINGS: No acute fracture or subluxation is evident. There are vascular calcifications within the adjacent s oft tissues. There is heterotopic ossification overlying the soft tissues of the right hip. IMPRESSION: No acute osseous abnormality. Stable right hip total knee prosthesis. POS: [facility]
== END 2018-12-12 12:46 | disposition home or self-care (01) ==
LOC: MADRAD 12:45
PROVIDERS: ATTEND Orthopaedic Surgery
DX: Z47.1 Aftercare following joint replacement surgery (principal); Z96.641 Presence of right artificial hip joint